=== PATIENT | female | born 1975 | race American Indian/Alaskan Native ===

== ENCOUNTER 2017-05-03 11:22 | Emergency (ER) | payer OTHER ==
[2017-05-03 11:36] VITALS: BP 167/110
--- NOTE | 2017-05-03 11:49 | Emergency Department Report ---
ED ENT HPI - General Chief complaint: Sore Throat Stated complaint: LEFT SIDE JAW/FACIAL SWELLING Time Seen by Provider: 05/03/17 11:39 Source: patient Mode of arrival: Ambulatory Limitations: No Limitations - History of Present Illness MD complaint: other (SORE THROAT AND SWELLING) -: Gradual, unknown (VAGUE ) Location: throat (NECK) Severity: moderate Consistency: constant Improves with: none Worsens with: none Associated Symptoms: denies: fever, cough, gum swelling, toothache, pain with swallowing, sore throat, tinnitus, hearing loss, discharge from ear, rhinorrhea - Related Data Previous Rx's Medication Instructions Recorded Last Taken Type traMADol [Ultram] 50 mg PO Q6HR PRN #12 tablet 05/03/17 Unknown Rx Allergies Allergy/AdvReac Type Severity Reaction Status Date / Time No Known Allergies Allergy Unverified 05/03/17 13:34 ED Dental HPI - General Chief complaint: Sore Throat Stated complaint: LEFT SIDE JAW/FACIAL SWELLING Time Seen by Provider: 05/03/17 11:39 Source: patient Mode of arrival: Ambulatory Limitations: No Limitations - Related Data Previous Rx's Medication Instructions Recorded Last Taken Type traMADol [Ultram] 50 mg PO Q6HR PRN #12 tablet 05/03/17 Unknown Rx Allergies Allergy/AdvReac Type Severity Reaction Status Date / Time No Known Allergies Allergy Unverified 05/03/17 13:34 ED Review of Systems ROS: Stated complaint: LEFT SIDE JAW/FACIAL SWELLING Other details as noted in HPI Comment: LITHUANIAN; DIFFICULT TO UNDERSTAND ENT: throat pain, other (NECK SWELLING) ED Past Medical Hx - Past Medical History Hx Hypertension: Yes Additional medical history: OBESE - Surgical History Past Surgical History?: Yes Additional Surgical History: CSEC - Social History Smoking Status: Never Smoker Substance Use Type: None - Medications Home Medications: Home Medications Medication Instructions Recorded Confirmed Last Taken Type traMADol [Ultram] 50 mg PO Q6HR PRN #12 tablet 05/03/17 Unknown Rx ED Physical Exam - General Limitations: No Limitations General appearance: alert - Head Head exam: Present: atraumatic - Eye Eye exam: Present: PERRL - ENT ENT exam: Present: normal exam, mucous membranes moist, TM's normal bilaterally - Neck Neck exam: Present: full ROM, thyromegaly (PERRI ON PT'S LEFT SIDE; NODULE ON RIGHT; NO HX THYROID DZ), other (TAKING PO WO DIFF.; NO SOB). Absent: tenderness, meningismus, lymphadenopathy - Respiratory Respiratory exam: Present: normal lung sounds bilaterally. Absent: respiratory distress, wheezes, rales, rhonchi, stridor - Cardiovascular Cardiovascular Exam: Present: regular rate - GI/Abdominal GI/Abdominal exam: Present: soft - Rectal Rectal exam: Present: deferred - Extremities Exam Extremities exam: Present: normal inspection - Back Exam Back exam: Present: normal inspection - Neurological Exam Neurological exam: Present: alert, oriented X3, CN II-XII intact, normal gait, reflexes normal - Psychiatric Psychiatric exam: Present: normal affect, normal mood - Skin Skin exam: Present: warm, dry, intact, normal color. Absent: rash ED Course Vital Signs 05/03/17 11:32 Temperature 98.4 F Pulse Rate 82 Respiratory 18 Rate Blood Pressure 167/110 O2 Sat by Pulse 100 Oximetry - Reevaluation(s) Reevaluation #1: 05/03/17 TO ER W CO SORE THROAT SHE POINTS TO NECK WHICH IS A GOITER SHE IS VAGUE ON WHEN THIS OCCURRED SHE DOES NOT HAVE ID WITH HER PERHAPS SHE IS VISITING HERE SHE IS VAGUE W HX STATES HTN BUT CAN NOT TELL ME MEDS DOES NOT KNOW NAME OF MD TAKING PO TALKING WO DIFFICULTY NO HOARSENESS NO LUDWIGS NO ABSCESS THROAT WNL NO DENTAL PAIN NO SINUS TENDERNESS LUNGS CTA ABC INTACT NO AIRWAY ISSUES OR OBSTRUCTION NO FEVER AMBULATORY AND TAKING PO LABS NOTED CT ORDERED TO EVAL MASS NODE ON R BUT ON EXAM L IS LARGER EDEMA OF SOFT TISSUE NOTED ON CT Reevaluation #2: 05/03/17 15:42 family at bedside brother updated on plan of care pt taking po and in nad BP 150/ 80 ON DC DC HOME W BROTHER W INSTRUCTIONS FOR FOLLOW UP WITH SPECIALIST VERBALIZE UNDERSTANDING. ED Medical Decision Making - Lab Data Result diagrams: 05/03/17 12:18 05/03/17 12:18 Critical care attestation.: If time is entered above; I have spent that time in minutes in the direct care of this critically ill patient, excluding procedure time. ED Disposition Clinical Impression: Thyroid nodule, Hypertension, Obese Disposition: DC-01 TO HOME OR SELFCARE Is pt being admited?: No Does the pt Need Aspirin: No Condition: Stable Instructions: Thyroid (By mouth), Thyroid Goiter (ED), Thyroid Nodules (ED), Hypertension (ED) Additional Instructions: you will need to see a specialist to have your thyroid evaluated you have a thyroid nodule and edema of the neck you should call in the am and see them this week inform them that you where seen here in the ER and they can obtain you medical records and images SEE YOU FAMILY DOCTOR TO MANAGE YOUR BLOOD PRESSURE Prescriptions: traMADol [Ultram] 50 mg PO Q6HR PRN #12 tablet PRN Reason: Pain Referrals: PRIMARY CARE, [Primary Care Provider] - 3-5 Days LIZETH AL MD [Staff Physician] - 3-5 Days ENRICO MANZO MD [Staff Physician] - 3-5 Days Time of Disposition: 14:48
[2017-05-03 12:31] LABS: Bilirubin,Urine NEG (Negative); Blood,Urine NEG (Negative); Color,Urine Yellow (Yellow); Mucus,Urine FEW /HPF; Nitrite,Urine NEG (Negative)
[2017-05-03 12:32] LABS: HCG Qualitative,Urine Negative (Negative)
[2017-05-03 12:40] LABS: Basophils % (Auto) 0.4 % (0.0-1.8); Eosinophils # (Auto) 0.1 K/mm3 (0.0-0.4); Eosinophils % (Auto) 2.9 % (0.0-4.3); Lymphocytes % (Auto) 20.6 % (13.4-35.0); Mean Corpuscular HGB Conc 30 % (30-34); Mean Corpuscular Volume 73 fl (79-97); Monocytes # (Auto) 0.5 K/mm3 (0.0-0.8); Monocytes % (Auto) 10.6 % (0.0-7.3); Platelet Count 255 K/mm3 (140-440); Red Blood Count 4.81 M/mm3 (3.65-5.03)
[2017-05-03 12:45] LABS: Hematocrit 35.2 % (30.3-42.9); Hemoglobin 10.7 gm/dl (10.1-14.3)
[2017-05-03 12:46] LABS: Mean Corpuscular Hemoglobin 22 pg (28-32)
[2017-05-03 12:57] LABS: Alanine Aminotransferase 13 units/L (7-56); Albumin 3.9 g/dL (3.9-5); BUN/Creatinine Ratio 16; Blood Urea Nitrogen 8 mg/dL (7-17); Calcium 8.3 mg/dL (8.4-10.2); Hemolysis Index 7
[2017-05-03 13:02] LABS: Bilirubin,Direct < 0.2 mg/dL (0-0.2)
[2017-05-03] MEDS ORDERED: NACL ONE (13:14)
--- NOTE | 2017-05-03 14:09 | Cat Scan Report ---
CT NECK WITH CONTRAST: HISTORY: Neck mass. TECHNIQUE: Helical CT following IV contrast. Sagittal and coronal reformatted images. FINDINGS: There is nonspecific subcutaneous edema in the submental soft tissues just to left of midline. No discrete mass or bulky adenopathy is identified. The parotid and submandibular glands are normal. The carotid sheaths are intact. There is no evidence of adenopathy within the neck. The glottic structures are normal. The airway is patent. Strap musculature is unremarkable. Hyoid bone and thyroid cartilage are intact. There is an ill-defined hypodense mass in the right thyroid lobe measuring up to 2.6 cm. IMPRESSION: Nonspecific subcutaneous edema in the submental region as described. Right thyroid nodule.
[2017-05-03] MEDS ORDERED: NORCO 5/325 PO ONE (15:11)
== END 2017-05-03 16:01 | disposition home or self-care (01) ==
LOC: ED 11:22
DX: E04.1 Nontoxic single thyroid nodule (principal); I10 Essential (primary) hypertension; E66.9 Obesity, unspecified
CPT/HCPCS: 36415; 70491; 80048; 80074; 81001; 81025; 85025; 87116; 87430; 99284; Q9967